=== PATIENT | male | born 1960 | race Caucasian/White ===

== ENCOUNTER → 2017-05-15 | Day surgery (SDC) | payer OTHER ==
[~2017-05-15] VITALS: Ht 180.3 cm; Wt 113.4 kg
--- NOTE | 2017-05-15 11:30 | Operative Report ---
Operative/Inv Procedure Report Surgery Date: 05/15/17 Name of Procedure: Laparoscopic right inguinal hernia repair Pre-Operative Diagnosis: Right inguinal hernia Post-Operative Diagnosis: Same Estimated Blood Loss: scant Surgeon/Body And Fender Worker: Marcelino JARRETT,Huan Yarbrough/Jennifer NATHAN Anesthesia: general endotracheal tube Implants: Parietex mesh Specimens: None Operative/Procedure Note Note: After consent patient is brought to the operating room laid supine. General anesthesia was obtained and the abdomen was prepped and draped. Skin was anesthetized with local anesthesia and a transverse infraumbilical incision made sharply. We identified the rectus fascia and incised transversely. Stay sutures were placed. Rectus muscle was retracted laterally and a dissecting balloon placed posterior to it. It was inflated under direct vision the camera and replaced with a blunt Arriola port. Gas was instilled. 2, 5 mm ports were placed in the infraumbilical midline after local anesthesia was instilled and under direct vision and camera. Began our dissection at the pubis and delineated the symphysis on the right side. Shaquille's ligament was identified and cleared. Then dissected laterally and developed the iliopubic tract. There is a large indirect hernia sac with associated cord lipoma. The size of the defect was quite substantial. The cord structures were circumferentially dissected. Once the dissection was completed a right -sided piece of Parietex mesh was placed in the cavity. It was placed around the cord structures re- create the internal ring and cover the femoral and direct spaces as well. Gas was allowed to escape on maintaining proper orientation of the mesh. The fascia was closed with 0 Vicryl suture. Skin incisions closed with 4-0 Vicryl. Steri- Strips and sterile dressing applied. Sponge and needle counts are correct. Findings: Indirect CC: Lamonte JARRETT,Damian Booker
== END ==
LOC: STS 04:57
DX: K40.90 Unilateral inguinal hernia, without obstruction or gangrene, not specified as recurrent (principal); F17.210 Nicotine dependence, cigarettes, uncomplicated
CPT/HCPCS: C1781; J0131; J0690; J2250